=== PATIENT | male | born 1995 | race Caucasian/White ===

== ENCOUNTER 2020-06-17 11:12 | Emergency (ER) | payer BC, SELFPAY ==
[2020-06-17 11:15] VITALS: BP 138/104; PULSE 85; RESP 16; TEMP 36.7; O2SAT 100; BMI 20.7
--- NOTE | 2020-06-17 11:15 | HMH.EDGENADL ---
ED Disposition Clinical Impression: Chest wall pain Disposition: Home, Self-Care Condition on Discharge: Good Instructions: DI for Acute Pain -- Adult Additional Instructions: Take meds as prescribed always with food and water. Also use ice on affected area. If pain does worsen, you develop any respiratory symptoms, or any other new concerning symptoms please immediately return back to our emergency department. Referrals: Filiberto Fitzpatrick [Primary Care Provider] - - Critical Care Critical Care Time: No Attestation: On , the high probability of a clinically significant, sudden or life threatening deterioration of the following system(s) required my full and direct attention, intervention and personal management. The time I documented below is in addition to time spent performing reported procedures but includes the following listed in this critical care notation. Medical Decision Making - Medical Records Medical records reviewed: Yes: I reviewed the patient's medical records. - José Inquiry Pt receiving controlled substance: No Vital Signs: 06/17/20 11:15 06/17/20 11:45 06/17/20 12:14 Temperature 98.1 F Temperature Source Oral Pulse Rate [Right Radial] 85 77 83 Respiratory Rate 16 Blood Pressure [Right Arm] 138/104 H 137/85 121/75 Blood Pressure Mean [Right Arm] 115 102 90 Blood Pressure Source [Right Arm] Automatic Cuff Automatic Cuff Automatic Cuff Blood Pressure Position [Right Arm] Sitting Sitting Sitting 02 Sat by Pulse Oximetry 100 99 99 Oxygen Delivery Method Room Air Room Air Room Air Orders (Tests/Meds): ORDERS Category Date Time Status XR ribs RT min 3V w CXR1V Stat Exams 06/17/20 11:18 Taken ECG Request by /Annalisa Stat Y 06/17/20 11:18 Ordered Medical Decision Narrative: Patient is a 24-year-old male present with right rib cage pain. Differential diagnosis does include pleurisy versus rib fracture/contusion versus pneumonia. EKG was obtained demonstrates no dysrhythmia or other abnormal finding. At this time, pulmonary embolus is considered but very low suspicion and pulmonary embolus rule out criteria can be applied to this patient and he does PERC out. X-ray will be obtained for further evaluation of any bony abnormality. X-ray reviewed. No significant acute abnormality noted. Nondisplaced rib fracture cannot be completely ruled out but I did not see multiple displaced rib fractures that would need surgical intervention. Patient will be placed on NSAIDs with instructions to take with water and food. He has remained hemodynamically stable I do believe safe to be discharged. Given strict return precautions including worsening pain, shortness of breath, other new concerning symptoms. Otherwise, he will follow up with his PCP for recheck within several days. Assessment: Right rib cage pain Disposition: Home with followup General Adult HPI - General Stated complaint: pain under right rib hurts more when breathes Time Seen by Provider: 06/17/20 11:20 - History of Present Illness HPI narrative: 4-year-old male without past history presented with right chest wall pain. Patient states 1 week ago he woke up and began having a right chest wall pain. The pain is constant but somewhat worse when he takes breaths. He denies any cough, fever/chills, other sick symptoms. No history of trauma the patient can recollect. No meds have been tried. The pain is dull and constant. - Related Data Allergies Allergy/AdvReac Type Severity Reaction Status Date / Time acetaminophen [From TYLENOL] Allergy Unknown Unverified 06/09/17 15:02 [facility] History - Hepatitis A Screen Attestation statement:: This patient has been screened for Hepatitis A risk factors. ROS Obtained: Yes All systems reviewed & no additional complaints Physical Exam - General General appearance: alert, in no apparent distress - Head Head exam: atraumatic, normocephalic - Eye Eye exam: Prese
--- NOTE | 2020-06-17 11:18 | XR_ITS ---
PROCEDURE: XR RIBS RT MIN 3V W CXR1V Referring Doctor: Remberto Harvey Patient Age:24Y CLINICAL INDICATION: Right chest wall pain right-sided rib pain. No recent trauma or injury but nonsmoker COMPARISON: CR CXR CHEST(2 VIEWS-NOT PORTABLE) from 01/21/2017 CR XR CHEST 2V from 08/20/2019 FINDINGS: A frontal view of the chest shows lungs to be clear with no active disease. No significant change since previous July 2019 CXR. Multiple views of the right ribs were obtained. No acute findings. No fracture. No lesion IMPRESSION: No acute findings. Negative right ribs. Negative CXR. Lungs clear Dictated by: Roge Sullivan MD 06/17/2020 13:02 Roge Sullivan MD in [facility] 06/17/2020 13:05
--- NOTE | 2020-06-17 11:23 | ECG_ITS ---
APPROVED REPORT Exam: Resting ECG HR:77 bpm ECG Measurements Heart Rate 77 AXES KS 114 P 48 QRSd 98 QRS 73 QT 364 T 54 QTc 411 Conclusion Normal sinus rhythm Incomplete right bundle branch block Borderline ECG Electronically signed by : Matthew Del Cid, 06/17/2020 20:59:06
[2020-06-17 11:45] VITALS: BP 137/85; PULSE 77; O2SAT 99
[2020-06-17 12:14] VITALS: BP 121/75; PULSE 83; O2SAT 99
[2020-06-17 12:33] VITALS: BP 117/76; PULSE 76; RESP 18; TEMP 36.7; O2SAT 98
== END 2020-06-17 12:37 | disposition home or self-care (01) ==
PROVIDERS: Emergency Provider Emergency Medicine; PCP Internal Medicine
DX: R07.89 Other chest pain (principal); Z88.6 Allergy status to analgesic agent
CPT/HCPCS: 71101; 93005; 99282

== ENCOUNTER → 2021-03-28 08:37 | Outpatient (CLI) | payer BC, SELFPAY | PROVIDERS: PCP Internal Medicine; Visit Provider Nurse Practitioner | DX: Z20.822 Contact with and (suspected) exposure to COVID-19 (principal); U07.1 COVID-19 | CPT/HCPCS: C9803; U0003; U0005 ==

== ENCOUNTER 2022-12-04 02:25 | Emergency (ER) | payer BC, SELFPAY ==
[2022-12-04] VITALS (8 sets, daily range): BP systolic 134–150; BP diastolic 72–99; PULSE 65–102; RESP 16; TEMP 36.7; O2SAT 97–100; BMI 19.2
--- NOTE | 2022-12-04 02:24 | ECG_ITS ---
APPROVED REPORT Exam: Resting ECG HR:95 bpm ECG Measurements Heart Rate 95 AXES VT 131 P 79 QRSd 108 QRS 84 QT 367 T 57 QTc 419 Conclusion SINUS RHYTHM LEFT ATRIAL Abnormality INCOMPLETE RIGHT BUNDLE BRANCH BLOCK [90+ ms QRS DURATION, TERMINAL R IN V1/V2, 40+ ms S IN I/aVL/V4/V5/V6] BORDERLINE ECG UNCONFIRMED REPORT Electronically signed by : Matthew Del Cid MD 12/05/2022 16:21:53
--- NOTE | 2022-12-04 02:27 | XR_ITS ---
PROCEDURE INFORMATION: Exam: XR Chest Exam date and time: 12/04/2022 2:23 AM Age: 27 years old Clinical indication: Sternal or substernal pain; Additional info: Cp TECHNIQUE: Imaging protocol: Radiologic exam of the chest. Views: 2 views. COMPARISON: CR XR RIBS RT MIN 3V W CXR1V 06/17/2020 11:23 AM FINDINGS: Lungs: Normal. Pleural spaces: Unremarkable. No pleural effusion. No pneumothorax. Heart/Mediastinum: Normal. Bones/joints: No acute abnormality. IMPRESSION: No acute findings.
[2022-12-04 02:42] LABS: Basophils # 0.1 K/mm3 (0-0.2); Basophils % 0.7 % (0.1-2.0); Eosinophils # 0.3 K/mm3 (0.0-0.4); Eosinophils % 2.8 % (0.1-12.0); Hematocrit 54.4 % (42.0-52.0); Hemoglobin 17.6 g/dL (14.1-18.0); Lymphocytes # 3.6 K/mm3 (0.7-4.5); Lymphocytes % 32.4 % (10-50); Mean Corpuscular HGB Conc 32.3 g/dL (31.8-35.4); Mean Corpuscular Volume 86.7 fl (80-94); Mean Platelet Volume 8.8 fl (7.4-10.4); Monocytes # 0.6 K/mm3 (0.1-1.0); Monocytes % 5.2 % (1.7-9.3); Neutrophils # 6.5 K/mm3 (1.8-7.8); Neutrophils % 58.9 % (37.0-80.0); Platelet Count 252 K/mm3 (142-424); Red Blood Count 6.27 M/mm3 (4.60-6.20)
[2022-12-04 02:47] LABS: Anion Gap 18.5 mEq/L (5-15); Blood Urea Nitrogen 19 mg/dl (9-20); Calcium 8.8 mg/dl (8.4-10.2); Carbon Dioxide 27 mmol/L (22.0-30.0); Chloride 99 mmol/L (98-107); Creatinine Clearance Estimated 103 mL/min (50-200); Estimated Glomerular Filt Rate 101 ml/min (>60); GFR (African American) 122 ML/MIN (>60); Glucose 96 mg/dl (74-100); Potassium 3.5 mmoL/L (3.5-5.1); Sodium 141 mmol/L (136-145)
[2022-12-04 02:59] LABS: Troponin I < 0.01 ng/ml (0.00-0.034)
[2022-12-04 03:56] LABS: C-Reactive Protein 0.7 mg/L (0-4)
[2022-12-04 04:10] LABS: Procalcitonin 0.055 ng/mL (0.0-2.0)
[2022-12-04 04:19] LABS: Erythrocyte Sedimentation Rate 3 mm/hr (0-15)
--- NOTE | 2022-12-04 04:44 | HMH.EDCP ---
Discharge Plan Disposition Patient Disposition: Home, Self-Care Chief Complaint: Chest Pain Prescriptions Prescriptions: No Action No Known Home Medications Referrals Follow up/Referrals: Filiberto Fitzpatrick MD [Primary Care Provider] - See instructions Clinical Impressions Clinical Impression: Atypical chest pain Instructions Patient Instructions: DI for Atypical Chest Pain Discharge ED Provider: Indira BRANCH)Bret Chest Pain HPI General Chief Complaint: Chest Pain Stated Complaint: cp Time Seen by Provider: 12/04/22 03:00 Mode of Arrival: Ambulatory Source of Information: Patient and Medical Record Limitations: No Limitations Description of Symptoms (Recalled from ER Triage Doc. by RN): pt c/o lt side achy chest pain that started @ 8pm. History of Present Illness HPI narrative: lt sided chest pain with tingling in lt upper ext which started tonight at 1999 at rest - no known cardiac dis - MD complaint: chest pain Onset (ago): hour(s) Duration: intermittent Activity at onset: during rest Pain location: left chest Severity: moderate Quality: aching Pain radiation: LUE Risk Factors for CAD: Family Hx of CAD Treatments prior to or on arrival for Cardiac Chest Pain: none MERRILL Score for Non-Stemi Age of Patient: <30 years old Heart Rate: 90-109 bpm Systolic Blood Pressure: 120-139 mmhg Serum Creatinine: 0.80-1.19 mg/dl CHF [place] Class: I-No CHF Other Risk Factors: None Non-Stemi Risk Score: 56 Risk Stratification: 1-108 = Low Risk Related Data Home Medications Medication Instructions Recorded Confirmed No Known Home Medications 12/04/22 12/04/22 Allergies Allergy/AdvReac Type Severity Reaction Status Date / Time acetaminophen [From TYLENOL] Allergy Unknown Verified 08/14/22 08:14 [facility] Disclaimer: The information contained in this section may have been updated after the patient was seen, as this information can be updated by other users. Social History (Updated 08/14/22 @ 12:03 by Joshua Radford APRN) Smoking Status: Never smoker alcohol intake: never current occupational status: unemployed Travel in the last 8 weeks: None ROS Obtained: Yes All systems reviewed & no additional complaints except as documented Physical Exam General General appearance: alert Head Head exam: normocephalic Eye Eye exam: Present PERRL and EOMI ENT ENT exam: Present mucous membranes moist Neck Neck exam: Present trachea midline Respiratory Respiratory exam: Absent respiratory distress Cardiovascular Cardiovascular exam: Present regular rate; Absent systolic murmur or rubs Abdominal Exam Abdominal exam: Present soft Extremities Exam Extremities exam: Present full ROM Neurological Exam Neurological exam: Present alert, oriented X3 and CN II-XII intact; Absent motor sensory deficit Psychiatric Psychiatric exam: Present normal affect Skin Skin exam: Absent rash Medical Decision Making Medical Records Medical records reviewed: Yes I reviewed the patient's medical records. José Inquiry Pt receiving controlled substance: No Vital Signs: 12/04/22 02:25 12/04/22 02:30 12/04/22 03:00 Temperature 98.1 F Temperature Source Oral Pulse Rate 102 H 77 Pulse Rate [Right] 102 H Respiratory Rate 16 Blood Pressure 136/87 Blood Pressure [Right Arm] 150/99 H Blood Pressure Mean 103 Blood Pressure Mean [Right Arm] 116 02 Sat by Pulse Oximetry 99 100 Oxygen Delivery Method Room Air 12/04/22 03:30 12/04/22 04:00 12/04/22 04:30 Temperature Temperature Source Pulse Rate 72 65 69 Pulse Rate [Right] Respiratory Rate Blood Pressure 137/88 134/83 135/78 Blood Pressure [Right Arm] Blood Pressure Mean Blood Pressure Mean [Right Arm] 02 Sat by Pulse Oximetry 100 98 97 Oxygen Delivery Method Room Air Room Air Room Air 12/04/22 05:00 Temperature Temperature Source Pulse Rate 66 Pulse Rate [Right] Respiratory Rate Blood P
== END 2022-12-04 05:57 | disposition home or self-care (01) ==
PROVIDERS: Emergency Provider Emergency Medicine; PCP Internal Medicine
DX: R07.89 Other chest pain (principal); M79.602 Pain in left arm
CPT/HCPCS: 71046; 80048; 84145; 84484; 85025; 85651; 86140; 93005; 96360; 99285